=== PATIENT | female | born 1960 | race Caucasian/White ===

== ENCOUNTER 2020-12-11 19:17 | Emergency (ER) | payer OTHER ==
[~2020-12-11] VITALS: Ht 165.1 cm; Wt 64.9 kg
[2020-12-11] MEDS ORDERED: ONDANSETRON HCL/PF 4 MG/2 ML VIAL ONE (19:52)
--- NOTE | 2020-12-11 20:12 | NUR ---
A&OX4 F BIB SELF FOR PRIMARY COMPLAINT OF NASUEA, VOMITTING, AND DIARRHEA THAT STARTED AT APPROXIMATELY 1700. DENIES ABD PAIN. REPORTS APPROXIMATELY 5-10 EPISODES OF EMESIS PRIOR TO HOSPITAL ARRIVAL. STATES SHE BEGAN TO FEEL DIZZY AFTER MULTIPLE EPISODES OF VOMITTING AND DIARRHEA THAT IS RELLIEVED WITH LAYING. STATES SHE BELIEVES IT MAY BE FOOD POISONING FROM A MEAL SHE ATE AT 1200. VITAL SIGNS WITHIN NORMAL LIMITS. MD AT BEDSIDE AWAITING ORDERS.
[2020-12-11] MEDS: ONDANSETRON HCL/PF 4 MG/2 ML VIAL IVP ONE (20:14)
[2020-12-11] MEDS: IV NS 0.9% 1,000 ML BAG IV ONE (20:22)
[2020-12-11 20:23] LABS: BASOPHILS % (AUTO) 0.6 % (0.0-2.0); EOSINOPHILS % (AUTO) 4.2 % (0.0-6.0); HEMATOCRIT 37 % (33-45); HEMOGLOBIN 12.6 g/dL (11.5-14.8); LYMPHOCYTES # (AUTO) 1.6 K/uL (0.8-4.8); LYMPHOCYTES % (AUTO) 23.8 % (20.0-44.0); MEAN CORPUSCULAR HGB CONC 34 g/dl (31.0-36.0); MEAN CORPUSCULAR VOLUME 97 fL (82-100); MONOCYTES # (AUTO) 0.4 K/uL (0.1-1.30); MONOCYTES % (AUTO) 6.1 % (2.0-12.0); NEUTROPHILS # (AUTO) 4.4 K/uL (1.8-8.9); NEUTROPHILS % (AUTO) 65.3 % (43.0-81.0); PLATELET COUNT (AUTO) 261 K/uL (150-450); RED BLOOD CELL COUNT(AUTO) 3.85 MIL/uL (4.0-5.2); WHITE BLOOD COUNT (AUTO) 6.7 K/uL (4.3-11.0)
[2020-12-11 20:37] LABS: CARBON DIOXIDE 25 mmol/L (21-32); CHLORIDE 104 mmol/L (98-107); CREATININE 1.2 mg/dL (0.6-1.3); GLUCOSE 132 mg/dL (74-106); POTASSIUM 3.5 mmol/L (3.5-5.1); SODIUM SERUM 141 mmol/L (136-145); UREA NITROGEN, BLOOD 24 mg/dL (7-18)
[2020-12-11 20:54] LABS: ALANINE AMINOTRANSFERASE 13 U/L (12-78); ALBUMIN 3.8 g/dL (3.4-5.0); ALKALINE PHOSPHATASE 78 U/L (46-116); ASPARTATE AMINOTRANSFERASE 21 U/L (15-37); BILIRUBIN,DIRECT 0.1 mg/dL (0.0-0.2); BILIRUBIN,TOTAL 0.2 mg/dL (0.2-1.0); LIPASE 70 U/L (73-393); TOTAL PROTEIN, SERUM 7.7 g/dL (6.4-8.2)
--- NOTE | 2020-12-11 21:34 | NUR ---
PO CHALLENGE STARTED PER MD ORDER.
[2020-12-11] MEDS ORDERED: ONDA4TAB11 PO ×2 (21:48→21:51)
--- NOTE | 2020-12-11 22:06 | NUR ---
PT REPORTED IMPROVEMENT IN NASUEA, VOMITTING, AND DIZZINESS. DISCHARGE INSTRUCTIONS PROVIDED AND PRESCRIPTION SENT DIRECTLY TO PHARMACY. PT VERBALIZED UNDERSTANDING. DISCHARGED HOME IN STABLE CONDITION AND AMBULATED WELL. PICKED UP BY FRIEND.
[2020-12-11 22:23] VITALS: BP 117/81
== END 2020-12-11 21:58 | disposition home or self-care (01) ==
LOC: ER 19:25
DX: A05.9 Bacterial foodborne intoxication, unspecified (principal); R11.2 Nausea with vomiting, unspecified; R42 Dizziness and giddiness; F32.9 Major depressive disorder, single episode, unspecified; Z88.5 Allergy status to narcotic agent; Z88.1 Allergy status to other antibiotic agents
CPT/HCPCS: 36415; 71045; 80048; 80076; 83690; 84484; 85025; 93005; 96361; 96374; 99291; J2405; J7030